=== PATIENT | male | born 1935 | race Two or more races ===

== ENCOUNTER 2021-11-01 06:29 | Inpatient (IN) | payer MEDICAID, OTHER ==
[~2021-11-01] VITALS: Ht 170.2 cm; Wt 61.0 kg
[2021-11-01 07:57] LABS: Basophils # (auto) 0.1 10 ^3/uL (0-0.2); Basophils % (auto) 0.8 % (0.0-2.0); Eosinophils # (auto) 0.3 10 ^3/uL (0-0.8); Eosinophils % (auto) 4.1 % (0.0-7.0); Hematocrit 35.8 % (41.0-53.0); Hemoglobin 11.3 g/dL (13.5-17.5); Lymphocytes # (auto) 2.1 10 ^3/uL (0.4-5.4); Lymphocytes % (auto) 30.1 % (10.0-50.0); Mean Corpuscular Hemoglobin 27.8 pg (28.0-32.0); Mean Corpuscular Hgb Conc. 31.4 g/dL (32.0-36.0); Mean Corpuscular Volume 88.7 fL (80.0-100.0); Monocytes # (auto) 0.7 10 ^3/uL (0-1.3); Monocytes % (auto) 10.4 % (0.0-12.0); Neutrophils # (auto) 3.8 10 ^3/uL (1.6-8.6); Neutrophils % (auto) 54.6 % (37.0-80.0); Red Blood Cells 4.04 10^6/uL (4.5-5.90); Red Cell Distribution Width 14.8 % (11.8-14.3); White Blood Cell 6.9 10^3/uL (4.4-10.8)
[2021-11-01 08:13] LABS: INR 1.05 (0.9-1.15); Partial Thromboplastin Time 29.2 sec (24.6-33.4)
[2021-11-01 08:15] LABS: Albumin 2.9 g/dL (3.4-5.0); Calcium 9.2 mg/dL (8.5-10.1); Magnesium 2.4 mg/dL (1.6-2.6)
[2021-11-01 08:18] LABS: BUN/Creatinine Ratio 20.4; Bilirubin, Total 0.4 mg/dL (0.2-1.0); Total Protein 6.8 g/dL (6.4-8.2)
[2021-11-01 09:10] LABS: Urine Bacteria NONE SEEN /hpf (None Seen); Urine Blood Negative /uL (Negative); Urine Hyaline Cast FEW /lpf (0 - 2); Urine Mucus FEW (None Seen); Urine Specific Gravity 1.016 (1.001-1.035); Urine WBC 1 /hpf (0 - 3)
[2021-11-01] MEDS ORDERED: MORPHINE SULFATE INJ 2 MG/ml SYRG IV PRN (15:30)
[2021-11-01] MEDS ORDERED: NITROGLYCERIN 0.4 MG SL TAB SL PRN (15:30)
[2021-11-01] MEDS ORDERED: DOCUSATE SOD 100 MG CAP PO PRN (15:30)
[2021-11-01] MEDS ORDERED: LOS25T PO (15:36)
[2021-11-01] MEDS ORDERED: METH10TA6 PO (15:36)
[2021-11-01] MEDS ORDERED: LOSA-69 PO (15:36)
[2021-11-01] MEDS ORDERED: MET25T PO (15:36)
[2021-11-01] MEDS ORDERED: TAMS1CAP25 PO (15:36)
[2021-11-01] MEDS ORDERED: TAMS0.4C36 PO (15:37)
[2021-11-01] MEDS ORDERED: TAMSULOSIN HYDROCHLORIDE 0.4 MG CAP PO SCH (18:00)
[2021-11-01 22:00] VITALS: BP 168/66
[2021-11-01] MEDS: SODIUM CHLOR 0.9% PF (SALINE LOCK) 10ML VIAL/SYR IV SCH (22:28)
[2021-11-01] MEDS: METOPROLOL TARTRATE 25 MG TAB PO SCH (22:29)
[2021-11-01] MEDS: methIMAzole 5 MG TAB PO SCH (22:30)
[2021-11-01 23:03] VITALS: BP 157/66
[2021-11-02 05:00] VITALS: BP 176/71
[2021-11-02 06:17] LABS: BUN/Creatinine Ratio 21.9; Calcium 9.2 mg/dL (8.5-10.1); Potassium 5.3 mmol/L (3.5-5.1)
[2021-11-02] MEDS: SODIUM CHLOR 0.9% PF (SALINE LOCK) 10ML VIAL/SYR IV SCH (06:21)
[2021-11-02 08:50] VITALS: BP 148/97
[2021-11-02] MEDS: methIMAzole 5 MG TAB PO SCH (09:10)
[2021-11-02] MEDS: METOPROLOL TARTRATE 25 MG TAB PO SCH (09:11)
[2021-11-02 13:09] VITALS: BP 125/56
== END 2021-11-02 14:40 | disposition home or self-care (01) | DRG 194 ==
LOC: ER 06:29 → TELE 15:27 → TELE-CENTR 21:10
PROVIDERS: ADMIT Nurse Practitioner Family; ATTEND Hospitalist
PROC: 0W993ZZ Drainage of Right Pleural Cavity, Percutaneous Approach (ICD-10-PCS; principal; 2021-11-02)
DX: J90 Pleural effusion, not elsewhere classified (principal); I13.0 Hypertensive heart and chronic kidney disease with heart failure and stage 1 through stage 4 chronic kidney disease, or unspecified chronic kidney disease; E88.09 Other disorders of plasma-protein metabolism, not elsewhere classified; C80.1 Malignant (primary) neoplasm, unspecified; I48.91 Unspecified atrial fibrillation; I48.92 Unspecified atrial flutter; N18.30 Chronic kidney disease, stage 3 unspecified; E05.90 Thyrotoxicosis, unspecified without thyrotoxic crisis or storm; N28.1 Cyst of kidney, acquired; I50.9 Heart failure, unspecified; Z20.822 Contact with and (suspected) exposure to COVID-19; Z79.899 Other long term (current) drug therapy; Z85.46 Personal history of malignant neoplasm of prostate; Z87.891 Personal history of nicotine dependence; Z95.0 Presence of cardiac pacemaker; Z90.49 Acquired absence of other specified parts of digestive tract
CPT/HCPCS: 36415; 71045; 71250; 76604; 76942; 80048; 80053; 81001; 83036; 83735; 83986; 84443; 84484; 85025; 85610; 85730; 87070; 87205; 89051; 93005; 93306; G0378

== ENCOUNTER 2021-11-16 07:23 | Inpatient (IN) | payer MEDICAID ==
[~2021-11-16] VITALS: Ht 167.6 cm; Wt 56.9 kg
[~2021-11-16 07:23] MED LIST: LOS25T PO; LOSA-69 PO; MET25T PO; METH10TA6 PO; TAMS0.4C36 PO
[2021-11-16 08:38] LABS: Urine Bacteria NONE SEEN /hpf (None Seen); Urine Blood Negative /uL (Negative); Urine Specific Gravity 1.016 (1.001-1.035); Urine WBC <1 /hpf (0 - 3)
[2021-11-16 09:08] LABS: Basophils # (auto) 0.1 10 ^3/uL (0-0.2); Basophils % (auto) 0.7 % (0.0-2.0); Eosinophils # (auto) 0.1 10 ^3/uL (0-0.8); Eosinophils % (auto) 1.8 % (0.0-7.0); Hematocrit 37.9 % (41.0-53.0); Hemoglobin 11.9 g/dL (13.5-17.5); Lymphocytes # (auto) 2.4 10 ^3/uL (0.4-5.4); Lymphocytes % (auto) 28.8 % (10.0-50.0); Mean Corpuscular Hgb Conc. 31.6 g/dL (32.0-36.0); Mean Corpuscular Volume 88.7 fL (80.0-100.0); Monocytes # (auto) 0.6 10 ^3/uL (0-1.3); Monocytes % (auto) 7.2 % (0.0-12.0); Neutrophils # (auto) 5.1 10 ^3/uL (1.6-8.6); Neutrophils % (auto) 61.5 % (37.0-80.0); Nucleated Red Blood Cells % 0.1 %; Red Blood Cells 4.27 10^6/uL (4.5-5.90); Red Cell Distribution Width 16.4 % (11.8-14.3); White Blood Cell 8.3 10^3/uL (4.4-10.8)
[2021-11-16 09:21] LABS: INR 1.08 (0.9-1.15); Partial Thromboplastin Time 27.5 sec (24.6-33.4)
[2021-11-16 09:24] LABS: Calcium 9.3 mg/dL (8.5-10.1); Magnesium 2.3 mg/dL (1.6-2.6); Potassium 5.4 mmol/L (3.5-5.1)
[2021-11-16 09:28] LABS: BUN/Creatinine Ratio 25.4; Bilirubin, Total 0.4 mg/dL (0.2-1.0)
[2021-11-16] MEDS ORDERED: SODIUM ZIRCONIUM CYCL 10 GM PAK PO ONE (11:00)
[2021-11-16] MEDS ORDERED: DEXTROSE (50%) 50ML SYRG IV ONE (11:00)
[2021-11-16] MEDS ORDERED: CALCIUM GLUC 1,000mg/50ml-NS 50 ML IV ONE (11:00)
[2021-11-16] MEDS ORDERED: InsuLIN REG 1unit/0.01ml Soln (100units/ml) IV ONE (11:00)
[2021-11-16] MEDS ORDERED: LACTATED RINGER'S 250 ML IV ONE (11:15)
[2021-11-16] MEDS ORDERED: IOHEXOL 350 MG/ML 100ML IJ ONE (11:31)
[2021-11-16] MEDS ORDERED: MORPHINE SULFATE INJ 2 MG/ml SYRG IV PRN (14:45)
[2021-11-16] MEDS ORDERED: NITROGLYCERIN 0.4 MG SL TAB SL PRN (14:45)
[2021-11-16] MEDS ORDERED: hydrALAZINE HCL 20 MG/ML VL IV PRN (15:15)
[2021-11-16 18:39] LABS: BUN/Creatinine Ratio 23.8; Calcium 9.7 mg/dL (8.5-10.1); Potassium 4.5 mmol/L (3.5-5.1)
[2021-11-16] MEDS: TAMSULOSIN HYDROCHLORIDE 0.4 MG CAP PO SCH (19:28)
[2021-11-16] MEDS ORDERED: ALBUTEROL SULF 2.5 MG/0.5ML(0.5%) NEB SOLN NEB PRN (19:30)
[2021-11-16] MEDS ORDERED: IPRATROPIUM BROM 0.5 MG/2.5ML INH SOL NEB PRN (19:30)
[2021-11-16 20:50] VITALS: BP 154/67
[2021-11-16 23:28] VITALS: BP 139/62
[2021-11-17] MEDS: METOPROLOL TARTRATE 50 MG TAB PO SCH ×3 (00:07→22:08)
[2021-11-17 05:37] VITALS: BP 161/68
[2021-11-17 06:43] LABS: Basophils # (auto) 0.1 10 ^3/uL (0-0.2); Basophils % (auto) 0.7 % (0.0-2.0); Eosinophils # (auto) 0.2 10 ^3/uL (0-0.8); Eosinophils % (auto) 2.1 % (0.0-7.0); Hemoglobin 11.2 g/dL (13.5-17.5); Lymphocytes # (auto) 2.5 10 ^3/uL (0.4-5.4); Lymphocytes % (auto) 30.9 % (10.0-50.0); Mean Corpuscular Hemoglobin 28.1 pg (28.0-32.0); Mean Corpuscular Volume 87.8 fL (80.0-100.0); Monocytes # (auto) 0.7 10 ^3/uL (0-1.3); Monocytes % (auto) 8.9 % (0.0-12.0); Neutrophils # (auto) 4.6 10 ^3/uL (1.6-8.6); Neutrophils % (auto) 57.4 % (37.0-80.0); Red Blood Cells 3.98 10^6/uL (4.5-5.90); Red Cell Distribution Width 15.9 % (11.8-14.3)
[2021-11-17 06:49] LABS: Albumin 2.8 g/dL (3.4-5.0); Calcium 9.5 mg/dL (8.5-10.1)
[2021-11-17 06:53] LABS: BUN/Creatinine Ratio 22.1; Bilirubin, Total 0.7 mg/dL (0.2-1.0); Total Protein 6.7 g/dL (6.4-8.2)
[2021-11-17 09:00] VITALS: BP 159/74
[2021-11-17 13:00] VITALS: BP 121/57
[2021-11-17 17:00] VITALS: BP 121/67
[2021-11-17] MEDS: TAMSULOSIN HYDROCHLORIDE 0.4 MG CAP PO SCH (19:01)
[2021-11-17 22:00] VITALS: BP 151/63
[2021-11-18 05:00] VITALS: BP 141/59
[2021-11-18 09:18] VITALS: BP 122/57
[2021-11-18] MEDS: METOPROLOL TARTRATE 50 MG TAB PO SCH ×2 (12:21→21:11)
[2021-11-18 13:00] VITALS: BP 162/71
[2021-11-18 17:05] VITALS: BP 128/66
[2021-11-18] MEDS: TAMSULOSIN HYDROCHLORIDE 0.4 MG CAP PO SCH (19:15)
[2021-11-18 22:00] VITALS: BP 135/51
[2021-11-19] VITALS (11 sets, daily range): BP systolic 122–176; BP diastolic 60–83
[2021-11-19] MEDS ORDERED: POLYETHYLENE GLYCOL 17 GM PWDR PO PRN ×2 (03:15→06:00)
[2021-11-19 08:41] LABS: INR 1.1 (0.9-1.15); Partial Thromboplastin Time 26.7 sec (24.6-33.4)
[2021-11-19] MEDS: METOPROLOL TARTRATE 50 MG TAB PO SCH ×2 (09:14→22:30)
[2021-11-19] MEDS: TAMSULOSIN HYDROCHLORIDE 0.4 MG CAP PO SCH (18:00)
[2021-11-20] VITALS (21 sets, daily range): BP systolic 108–161; BP diastolic 41–78
[2021-11-20] MEDS: METOPROLOL TARTRATE 50 MG TAB PO SCH ×2 (09:12→21:18)
[2021-11-20] MEDS: TAMSULOSIN HYDROCHLORIDE 0.4 MG CAP PO SCH (18:32)
[2021-11-21] VITALS (13 sets, daily range): BP systolic 124–156; BP diastolic 53–71
[2021-11-21 04:50] LABS: Basophils # (auto) 0.1 10 ^3/uL (0-0.2); Basophils % (auto) 0.9 % (0.0-2.0); Eosinophils # (auto) 0.5 10 ^3/uL (0-0.8); Eosinophils % (auto) 6.1 % (0.0-7.0); Hematocrit 37.4 % (41.0-53.0); Lymphocytes # (auto) 2.2 10 ^3/uL (0.4-5.4); Lymphocytes % (auto) 27.3 % (10.0-50.0); Mean Corpuscular Hemoglobin 28.2 pg (28.0-32.0); Mean Corpuscular Hgb Conc. 32.1 g/dL (32.0-36.0); Mean Corpuscular Volume 87.8 fL (80.0-100.0); Monocytes # (auto) 0.7 10 ^3/uL (0-1.3); Monocytes % (auto) 8.2 % (0.0-12.0); Neutrophils # (auto) 4.7 10 ^3/uL (1.6-8.6); Neutrophils % (auto) 57.5 % (37.0-80.0); Red Blood Cells 4.26 10^6/uL (4.5-5.90); Red Cell Distribution Width 16.1 % (11.8-14.3); White Blood Cell 8.2 10^3/uL (4.4-10.8)
[2021-11-21 04:57] LABS: Albumin 2.7 g/dL (3.4-5.0); BUN/Creatinine Ratio 23.9; Potassium 4.7 mmol/L (3.5-5.1)
[2021-11-21 05:00] LABS: Bilirubin, Total 0.6 mg/dL (0.2-1.0); Total Protein 6.8 g/dL (6.4-8.2)
[2021-11-21] MEDS: METOPROLOL TARTRATE 50 MG TAB PO SCH (10:50)
[2021-11-21] MEDS: TAMSULOSIN HYDROCHLORIDE 0.4 MG CAP PO SCH (18:30)
== END 2021-11-21 19:35 | disposition home or self-care (01) | DRG 143 ==
LOC: ER 07:23 → TELE 14:49 → TELE-WESTW 19:06 → DOU IN ICU 11-19 19:50
PROVIDERS: ADMIT Registered Nurse; ATTEND Hospitalist
PROC: 0W993ZX Drainage of Right Pleural Cavity, Percutaneous Approach, Diagnostic (ICD-10-PCS; principal; 2021-11-19)
DX: J90 Pleural effusion, not elsewhere classified (principal); N17.9 Acute kidney failure, unspecified; E44.1 Mild protein-calorie malnutrition; J93.9 Pneumothorax, unspecified; D63.8 Anemia in other chronic diseases classified elsewhere; E87.5 Hyperkalemia; Z20.822 Contact with and (suspected) exposure to COVID-19; N18.2 Chronic kidney disease, stage 2 (mild); J98.11 Atelectasis; I12.9 Hypertensive chronic kidney disease with stage 1 through stage 4 chronic kidney disease, or unspecified chronic kidney disease; N28.1 Cyst of kidney, acquired; J43.9 Emphysema, unspecified; Z85.46 Personal history of malignant neoplasm of prostate; Z90.49 Acquired absence of other specified parts of digestive tract; Z95.0 Presence of cardiac pacemaker; Z80.9 Family history of malignant neoplasm, unspecified
CPT/HCPCS: 36415; 36600; 71045; 71275; 76604; 76942; 80048; 80053; 81001; 82805; 83735; 83880; 83986; 84484; 85025; 85379; 85610; 85730; 87081; 87205; 89051; 93005; 96360; 97163; 97530; 99291; G0378; J1815

== ENCOUNTER 2021-12-26 15:01 | Emergency (ER) | payer MEDICAID ==
[~2021-12-26] VITALS: Ht 167.6 cm; Wt 59.4 kg
[~2021-12-26 15:01] MED LIST changes: -LOS25T PO
[2021-12-26 16:55] LABS: Basophils # (auto) 0 10 ^3/uL (0-0.2); Basophils % (auto) 0.6 % (0.0-2.0); Eosinophils # (auto) 0.2 10 ^3/uL (0-0.8); Eosinophils % (auto) 2.3 % (0.0-7.0); Hematocrit 37.4 % (41.0-53.0); Hemoglobin 11.7 g/dL (13.5-17.5); Lymphocytes # (auto) 2.9 10 ^3/uL (0.4-5.4); Lymphocytes % (auto) 35.5 % (10.0-50.0); Mean Corpuscular Hemoglobin 28.1 pg (28.0-32.0); Mean Corpuscular Hgb Conc. 31.4 g/dL (32.0-36.0); Mean Corpuscular Volume 89.6 fL (80.0-100.0); Monocytes # (auto) 0.9 10 ^3/uL (0-1.3); Monocytes % (auto) 10.9 % (0.0-12.0); Neutrophils # (auto) 4.1 10 ^3/uL (1.6-8.6); Neutrophils % (auto) 50.7 % (37.0-80.0); Red Blood Cells 4.17 10^6/uL (4.5-5.90); Red Cell Distribution Width 15.6 % (11.8-14.3); White Blood Cell 8.2 10^3/uL (4.4-10.8)
[2021-12-26 17:10] LABS: INR 1.06 (0.9-1.15)
[2021-12-26 17:19] LABS: Albumin 3.2 g/dL (3.4-5.0); Potassium 5.1 mmol/L (3.5-5.1)
[2021-12-26 17:21] VITALS: BP 142/82
[2021-12-26 17:21] LABS: BUN/Creatinine Ratio 21.4
[2021-12-26 17:24] LABS: Bilirubin, Total 0.4 mg/dL (0.2-1.0); Total Protein 6.9 g/dL (6.4-8.2)
[2021-12-26] MEDS ORDERED: IOHEXOL 350 MG/ML 100ML IJ ONE (17:42)
== END 2021-12-26 19:23 | disposition home or self-care (01) ==
LOC: ER 15:01
DX: J90 Pleural effusion, not elsewhere classified (principal); I10 Essential (primary) hypertension; Z90.49 Acquired absence of other specified parts of digestive tract; Z87.891 Personal history of nicotine dependence
CPT/HCPCS: 32555; 36415; 71045; 71275; 76942; 80053; 83880; 84484; 85025; 85379; 85610; 85730; 93005; 99285; C1729; Q9967; 32554; 32556